=== PATIENT | female | born 1965 | race Caucasian/White ===

== ENCOUNTER 2020-11-16 21:11 | Emergency (ER) | payer OTHER ==
[~2020-11-16 21:11] MED LIST: ENAL20TA PO; LOVA40TA73 PO; PIOG15TA6 PO; SITA100T11 PO
== END 2020-11-16 21:50 | disposition left against medical advice (07) ==
LOC: ER 21:21
DX: F23 Brief psychotic disorder (principal); Z53.21 Procedure and treatment not carried out due to patient leaving prior to being seen by health care provider